=== PATIENT | female | born 1985 | race Two or more races ===

== ENCOUNTER 2020-03-05 19:18 | Emergency (ER) | payer MEDICAID ==
[~2020-03-05] VITALS: Ht 157.5 cm; Wt 86.2 kg
[2020-03-05 19:30] VITALS: BP 115/78
[2020-03-05] MEDS ORDERED: LORazepam Inj 2mg/ml 1ml IV ONE (19:30)
--- NOTE | 2020-03-05 19:32 | Emergency Room Report ---
History of Present Illness General Chief Complaint: seizure Source: Patient Present Illness HPI Patient is a 34-year-old female presents for increased seizure activity. Patient reports having prior history of multiple CATERER HELPER shunt revisions in the past. Has prior history of seizure disorder for which he takes 1500 mg of Keppra daily. She reportedly has been unable to keep her medication down. Reports having multiple episodes of vomiting over the past 2 week. Reports having attempted to take her medications without any success. Has been taking Zofran. Prior history of a seizure disorder. Denies any alcohol abuse.Patient states she is previously had meningitis in the past. Had previously been taking seizure medications including Dilantin which left her with sclerotic veins. Last CATERER HELPER shunt revision was approximate 9 months ago. States she had a ruptured appendix and had peritonitis which infected her shunt.Patient reports having multiple episodes of emesis and had been unable to reportedly keep down her Keppra. Allergies: Coded Allergies: METOCLOPRAMIDE (Verified Allergy, Unknown, 03/05/20) PROCHLORPERAZINE (Unverified Allergy, Unknown, 03/05/20) Patient History Past Medical History: see triage record Reviewed Nursing Documentation: PMH: Agreed; PSxH: Agreed Review of Systems All Other Systems: negative except mentioned in HPI Physical Exam General Appearance: alert, GCS 15, Chronically Ill ENT: hearing grossly normal Neck: full range of motion Respiratory: chest non-tender, lungs clear Cardiovascular #1: normal inspection, normal peripheral pulses, no edema, tachycardia Gastrointestinal: normal inspection, soft Musculoskeletal: normal inspection, decreased range of motion, normal range of motion Neurologic: alert, motor strength/tone normal, oriented x3, other - Increased DTRs bilaterally some clonus. Skin: no rash Medical Decision Making Diagnostic Impression: Primary Impression: Anemia Additional Impression: CATERER HELPER (ventriculoperitoneal) shunt status ER Course Presented for increased seizure activity. Differential diagnosis include was not limited to dehydration, medication withdrawal, substance abuse, , electrolyte abnormality among others. Because of complexity of patient's case laboratory tests and imaging studies were ordered. Patient has prior history of CATERER HELPER shunt placement in the past. CT imaging was ordered to evaluate for shunt position and size. Patient had poor IV access. Left EJ was attempted. Without success. Patient has a right-sided shunt. Patient was given pain medications. She was given seizure medications. Patient has poor IV access and a left axillary IV was established. Patient given pain medications and IV fluids. She was given Keppra.Patient does not have any significant acidosis but does have some leukopenia Patient did not have any evidence of emesis during initial emergency department course. She did request pain medications and stated that she wanted Dilaudid. I advised her that this may cause rebound headache. Shuntogram was read by radiologist is unremarkable. CT imaging showed postsurgical changes without evidence of hydrocephalus. CT imaging showed d ecreased ventricular size with a posterior right CATERER HELPER shunt catheter with tip in the frontal horn of the right lateral ventricle. Patient was loaded with Keppra and given medications for pain. Patient was noted to have some anemia given the patient's MCV apparently this is likely some what iron deficiency. Patient was observed in the emergency department vital signs.Patient was offered transfer for higher level of care. Patient stated that she had previous shunt revision performed after MRI had shunt malfunction. Patient was advised of laboratory findings as well as CT imaging results. Attempted contact [facility] for possible transfer and they state that they do not have capacity for possible transfer. I attempted to contact [facility] transfer loiza however pending callback from neurosurgery. Patient is endorsed to Dr. Campa pending final disposition. Labs Test 03/05/20 20:20 White Blood Count 3.9 K/UL (4.8-10.8) Red Blood Count 3.73 M/UL (4.20-5.40) Hemoglobin 7.6 G/DL (12.0-16.0) Hematocrit 25.0 % (37.0-47.0) Mean Corpuscular Volume 67 FL (80-99) Mean Corpuscular Hemoglobin 20.4 PG (27.0-31.0) Mean Corpuscular Hemoglobin Concent 30.5 G/DL (32.0-36.0) Red Cell Distribution Width 15.1 % (11.6-14.8) Platelet Count 302 K/UL (150-450) Mean Platelet Volume 6.8 FL (6.5-10.1) Neutrophils (%) (Auto) % (45.0-75.0) Lymphocytes (%) (Auto) % (20.0-45.0) Monocytes (%) (Auto) % (1.0-10.0) Eosinophils (%) (Auto) % (0.0-3.0) Basophils (%) (Auto) % (0.0-2.0) Differential Total Cells Counted 100 Neutrophils % (Manual) 57 % (45-75) Lymphocytes % (Manual) 37 % (20-45) Monocytes % (Manual) 5 % (1-10) Eosinophils % (Manual) 0 % (0-3) Basophils % (Manual) 0 % (0-2) Band Neutrophils 1 % (0-8) Platelet Estimate Adequate Platelet Morphology Normal Polychromasia 1+ Hypochromasia 1+ Anisocytosis 1+ Microcytosis 1+ Sodium Level 137 MMOL/L (136-145) Potassium Level 3.8 MMOL/L (3.5-5.1) Chloride Level 104 MMOL/L (98-107) Carbon Dioxide Level 27 MMOL/L (21-32) Anion Gap 6 mmol/L (5-15) Blood Urea Nitrogen 14 mg/dL (7-18) Creatinine 0.8 MG/DL (0.55-1.30) Estimat Glomerular Filtration Rate > 60 mL/min (>60) Glucose Level 90 MG/DL (74-106) Calcium Level 8.4 MG/DL (8.5-10.1) Phosphorus Level 3.6 MG/DL (2.5-4.9) Magnesium Level 1.9 MG/DL (1.8-2.4) Total Bilirubin 0.2 MG/DL (0.2-1.0) Aspartate Amino Transf (AST/SGOT) 24 U/L (15-37) Alanine Aminotransferase (ALT/SGPT) 13 U/L (12-78) Alkaline Phosphatase 40 U/L (46-116) Total Creatine Kinase 70 U/L (26-308) Total Protein 6.4 G/DL (6.4-8.2) Albumin 3.6 G/DL (3.4-5.0) Globulin 2.8 g/dL Albumin/Globulin Ratio 1.3 (1.0-2.7) Salicylates Level 1.4 ug/mL (2.8-20) Acetaminophen Level < 2 MCG/ML (10-30) Serum Alcohol < 3 mg/dL Status: improved Disposition: AGAINST MEDICAL ADVICE Condition: Stable Aaron Kat MD Mar 05, 2020 19:32
[2020-03-05] MEDS ORDERED: levETIRAcetam 1,000mg/NS100ml 100 ML IVPB ONE (19:45)
[2020-03-05] MEDS ORDERED: HYDROmorphone 1 MG, DiphenhydrAMINE 25 MG in NS 55 ML IV ONE (20:30)
[2020-03-05 20:46] LABS: HEMOGLOBIN 7.6 G/DL (12.0-16.0); MEAN CORPUSCULAR VOLUME 67 FL (80-99); PLATELET COUNT 302 K/UL (150-450); RED BLOOD COUNT 3.73 M/UL (4.20-5.40); RED CELL DISTRIBUTION WIDTH 15.1 % (11.6-14.8); WHITE BLOOD COUNT 3.9 K/UL (4.8-10.8)
[2020-03-05 20:54] LABS: ANION GAP 6 mmol/L (5-15); BLOOD UREA NITROGEN 14 mg/dL (7-18); CALCIUM 8.4 MG/DL (8.5-10.1); CARBON DIOXIDE 27 MMOL/L (21-32); CHLORIDE 104 MMOL/L (98-107); CREATININE 0.8 MG/DL (0.55-1.30); POTASSIUM 3.8 MMOL/L (3.5-5.1); SODIUM 137 MMOL/L (136-145)
[2020-03-05 20:59] LABS: PHOSPHORUS 3.6 MG/DL (2.5-4.9)
[2020-03-05 21:00] LABS: ALANINE AMINOTRANSFERASE 13 U/L (12-78); ALBUMIN 3.6 G/DL (3.4-5.0); ALBUMIN/GLOBULIN RATIO 1.3 (1.0-2.7); ALKALINE PHOSPHATASE 40 U/L (46-116); ASPARTATE AMINO TRANSFERASE 24 U/L (15-37); BILIRUBIN,TOTAL 0.2 MG/DL (0.2-1.0); CREATINE KINASE 70 U/L (26-308)
--- NOTE | 2020-03-05 21:19 | Diagnostic Imaging Report ---
EXAM: CT Head Without Intravenous Contrast CLINICAL HISTORY: PAIN TECHNIQUE: Axial computed tomography images of the head/brain without intravenous contrast. CTDI is 53.40 mGy and DLP is 968.90 mGy-cm. One or more of the following dose reduction techniques were used: automated exposure control, adjustment of the mA and/or kV according to patient size, use of iterative reconstruction technique. COMPARISON: No relevant prior studies available. FINDINGS: Brain: No acute infarct or hemorrhage. Ventricles: Ventricles are slitlike. No hydrocephalus. Bones/joints: Unremarkable. No acute calvarial fracture. Soft tissues: Unremarkable. Sinuses: Unremarkable as visualized. Mastoid air cells: Unremarkable as visualized. Tubes, lines and devices: Posterior right approach ADDICTION PROFESSIONAL shunt catheter with tip in the frontal horn of the right lateral ventricle. IMPRESSION: 1. No acute infarct or hemorrhage. 2. Posterior right approach ADDICTION PROFESSIONAL shunt catheter with tip in the frontal horn of the right lateral ventricle. Ventricles are slitlike. No hydrocephalus.
--- NOTE | 2020-03-05 21:21 | Diagnostic Imaging Report ---
EXAM: XR Other - Shuntogram CLINICAL HISTORY: MABLE TECHNIQUE: X-ray other - shuntogram. COMPARISON: No relevant prior studies available. FINDINGS: Right-sided RIG SUPERINTENDENT shunt catheter. No fracture or kink. IMPRESSION: Normal shuntogram.
[2020-03-05 21:30] VITALS: BP 116/90
[2020-03-05] MEDS ORDERED: HYDROmorphone 1mg/ml Carpuject IVP ONE (22:00)
[2020-03-05] MEDS ORDERED: DiphenhydrAMINE 50mg/ml Inj IVP ONE ×2 (22:00→23:30)
[2020-03-05 22:20] LABS: APPEARANCE,URINE CLEAR; BILIRUBIN, URINE NEGATIVE (NEGATIVE); COLOR,URINE PALE YELLOW; GLUCOSE, URINE (UA) NEGATIVE (NEGATIVE); KETONES,URINE NEGATIVE (NEGATIVE); LEUKOCYTE ESTERASE ,URINE 1+ (NEGATIVE); NITRITE,URINE NEGATIVE (NEGATIVE); PH,URINE 7 (4.5-8.0); PROTEIN,URINE NEGATIVE (NEGATIVE); UROBILINOGEN,URINE NORMAL MG/DL (0.0-1.0)
[2020-03-06 00:45] VITALS: BP 112/78
--- NOTE | 2020-03-06 01:34 | Emergency Room Report ---
Physical Exam Vital Signs Date Time Temp Pulse Resp B/P (MAP) Pulse Ox O2 Delivery O2 Flow Rate FiO2 03/05/20 19:25 98.6 115 18 115/78 (90) 100 Medical Decision Making Diagnostic Impression: Primary Impression: Anemia Additional Impressions: AIRPLANE REFUELER (ventriculoperitoneal) shunt status Left against medical advice Leukopenia Headache ER Course Assumed care of the patient from the previous provider at approximately 2300 hrs. Please refer to initial note for full history and physical exam. Briefly, 34-year-old female presenting for increased seizure activity. She has a history of AIRPLANE REFUELER shunt with multiple revisions. CT scan did not show acute intracranial injury but did show slit ventricles. Patient states she had multiple seizures today. She received IV Keppra in the ED. Also noted to be leukopenic and anemic. At the time of signout we are awaiting neurosurgical consultation and possible transfer for higher level of care as we do not have neurosurgical capabilities at our hospital. I was alerted by nursing staff that the patient wishes to leave the hospital at this time. He states that her headaches are not controlled despite receiving multiple doses of Dilaudid. The patient is specifically requesting 2 mg IV Dilaudid every hour with IV Benadryl. She declines Decadron, Toradol, Reglan, Tylenol, sumatriptan, Compazine. She did receive magnesium. She states she would leave and go to a different hospital that has neurosurgery to address her needs. I explained that narcotic medications were not first-line treatment for headaches and may even cause rebound. And that since she was getting no improvement after receiving Dilaudid other medication should be tried before administering more narcotics. I also explained to the patient that given her CT findings and lab results would be dangerous for her to leave the hospital at this time. She stated that she understood the risk but no longer wished to stay at our facility. She states a friend is coming to pick her up. I expressed to her in no uncertain terms that leaving the emergency department can cause significant morbidity and even mortality given her anemia, leukopenia, slight ventricle findings. She expressed understanding and left the emergency department refusing to sign AMA paperwork. Laboratory Tests Test 03/05/20 20:20 White Blood Count 3.9 K/UL (4.8-10.8) L Red Blood Count 3.73 M/UL (4.20-5.40) L Hemoglobin 7.6 G/DL (12.0-16.0) L Hematocrit 25.0 % (37.0-47.0) L Mean Corpuscular Volume 67 FL (80-99) L Mean Corpuscular Hemoglobin 20.4 PG (27.0-31.0) L Mean Corpuscular Hemoglobin Concent 30.5 G/DL (32.0-36.0) L Red Cell Distribution Width 15.1 % (11.6-14.8) H Platelet Count 302 K/UL (150-450) Mean Platelet Volume 6.8 FL (6.5-10.1) Neutrophils (%) (Auto) % (45.0-75.0) Lymphocytes (%) (Auto) % (20.0-45.0) Monocytes (%) (Auto) % (1.0-10.0) Eosinophils (%) (Auto) % (0.0-3.0) Basophils (%) (Auto) % (0.0-2.0) Differential Total Cells Counted 100 Neutrophils % (Manual) 57 % (45-75) Lymphocytes % (Manual) 37 % (20-45) Monocytes % (Manual) 5 % (1-10) Eosinophils % (Manual) 0 % (0-3) Basophils % (Manual) 0 % (0-2) Band Neutrophils 1 % (0-8) Platelet Estimate Adequate Platelet Morphology Normal Polychromasia 1+ Hypochromasia 1+ Anisocytosis 1+ Microcytosis 1+ Urine Color Pale yellow Urine Appearance Clear Urine pH 7 (4.5-8.0) Urine Specific [place] 1.005 (1.005-1.035) Urine Protein Negative (NEGATIVE) Urine Glucose (UA) Negative (NEGATIVE) Urine Ketones Negative (NEGATIVE) Urine Blood 5+ (NEGATIVE) H Urine Nitrite Negative (NEGATIVE) Urine Bilirubin Negative (NEGATIVE) Urine Urobilinogen Normal MG/DL (0.0-1.0) Urine Leukocyte Esterase 1+ (NEGATIVE) H Urine RBC 30-40 /HPF (0 - 2) H Urine WBC 0-2 /HPF (0 - 2) Urine Squamous Epithelial Cells Few /LPF (NONE/OCC) Urine Bacteria Occasional /HPF (NONE) Urine HCG, Qualitative Negative (NEGATIVE) Sodium Level 137 MMOL/L (136-145) Potassium Level 3.8 MMOL/L (3.5-5.1) Chloride Level 104 MMOL/L (98-107) Carbon Dioxide Level 27 MMOL/L (21-32) Anion Gap 6 mmol/L (5-15) Blood Urea Nitrogen 14 mg/dL (7-18) Creatinine 0.8 MG/DL (0.55-1.30) Estimated Glomerular Filtration Rate > 60 mL/min (>60) Glucose Level 90 MG/DL (74-106) Calcium Level 8.4 MG/DL (8.5-10.1) L Phosphorus Level 3.6 MG/DL (2.5-4.9) Magnesium Level 1.9 MG/DL (1.8-2.4) Total Bilirubin 0.2 MG/DL (0.2-1.0) Aspartate Amino Transferase (AST) 24 U/L (15-37) Alanine Aminotransferase (ALT) 13 U/L (12-78) Alkaline Phosphatase 40 U/L (46-116) L Total Creatine Kinase 70 U/L (26-308) Total Protein 6.4 G/DL (6.4-8.2) Albumin 3.6 G/DL (3.4-5.0) Globulin 2.8 g/dL Albumin/Globulin Ratio 1.3 (1.0-2.7) Salicylates Level 1.4 ug/mL (2.8-20) L Urine Opiates Screen Negative (NEGATIVE) Acetaminophen Level < 2 MCG/ML (10-30) L Urine Barbiturates Screen Negative (NEGATIVE) Phencyclidine (PCP) Screen Negative (NEGATIVE) Urine Amphetamines Screen Negative (NEGATIVE) Urine Benzodiazepines Screen Negative (NEGATIVE) Urine Cocaine Screen Negative (NEGATIVE) Urine Marijuana (THC) Screen Negative (NEGATIVE) Serum Alcohol < 3 mg/dL Microbiology Date/Time Source Procedure Growth Status 03/05/20 21:20 Nasopharynx SARS-CoV-2 RdRp Gene Assay - Final Complete Last Vital Signs Date Time Temp Pulse Resp B/P (MAP) Pulse Ox O2 Delivery O2 Flow Rate FiO2 03/06/20 00:45 98.6 96 18 112/78 100 Disposition: AGAINST MEDICAL ADVICE Condition: Stable Referrals: NOT CHOSEN IPA/MD,REFERRING (PCP) Procedures Critical Care Time Critical Care Time Total critical care time: Approximately 45 minutes Due to a high probability of clinically significant, life threatening deterioration, the patient required the highest level of preparedness to intervene emergently and I personally spent this critical care time directly and personally managing the patient. This critical care time included obtaining a history, examining the patient, pulse oximetry, ordering and reviewing studies, ordering treatments, evaluating response to treatment and updating management plan as needed, frequent reassessment and discussion with other providers as well as arranging for ultimate disposition. This critical to care time was performed to assess and manage the high probability of life-threatening deterioration that could result in multiorgan failure. This critical care time is separate from the separately billable procedures and treating other patients. Jared Campa MD Mar 06, 2020 01:34
== END 2020-03-06 00:45 | disposition left against medical advice (07) ==
LOC: EMR 20:34 → EDBEDREQ 20:36 → EMR 03-06 00:45 → CANBEDREQ 03-06 00:57
DX: D64.9 Anemia, unspecified (principal); G40.909 Epilepsy, unspecified, not intractable, without status epilepticus; Z98.2 Presence of cerebrospinal fluid drainage device; Z88.8 Allergy status to other drugs, medicaments and biological substances; Z53.29 Procedure and treatment not carried out because of patient's decision for other reasons
CPT/HCPCS: 36415; 70450; 75809; 80053; 80307; 81003; 81025; 82550; 83735; 84100; 85007; 85025; 96365; 96366; 96375; 96376; G0480; G0481; J1170; J1200; J1953; J2405; J7030; U0002; Z7502; 99291